=== PATIENT | male | born 1945 | race Caucasian/White ===

== ENCOUNTER 2018-09-14 16:53 | Inpatient (IN) | payer MEDICARE ==
[~2018-09-14] VITALS: Ht 167.6 cm; Wt 88.6 kg
[2018-09-14] MEDS ORDERED: nitroGLYCERIN 1gm ointment UD TP ONE (17:05)
[2018-09-14] MEDS ORDERED: aspirin 81mg tab.chew PO ONE (17:05)
[2018-09-14] MEDS ORDERED: nitroGLYCERIN 0.4mg SUBLingual tab SL PRN ×2 (17:05→18:00)
[2018-09-14 17:19] LABS: BASOPHILS % (AUTO) 0.3 % (0-1); EOSINOPHILS % (AUTO) 0.4 % (0-6); HEMATOCRIT 49.5 % (42.0-52.0); LYMPHOCYTES # (AUTO) 1.4 X10'3 (1.1-4.8); LYMPHOCYTES % (AUTO) 18.3 % (21-51); MEAN CORPUSCULAR HEMOGLOBIN 31.4 PG (27.0-31.0); MEAN CORPUSCULAR HGB CONC 34.3 g/dL (33.0-36.5); MEAN CORPUSCULAR VOLUME 91.3 FL (78-98); MEAN PLATELET VOLUME 8.6 FL (7.4-10.4); MONOCYTES # (AUTO) 0.6 X10'3 (0-0.9); MONOCYTES % (AUTO) 7.8 % (2-12); NEUTROPHILS # (AUTO) 5.7 X10'3 (1.8-7.7); NEUTROPHILS % (AUTO) 73.2 % (42-75); PLATELET COUNT 184 X10'3 (140-440); RED BLOOD COUNT 5.42 X10'6 (4.70-6.10); RED CELL DISTRIBUTION WIDTH 13.7 % (11.5-14.5); WHITE BLOOD COUNT 7.7 X10'3 (4.5-11.0)
--- NOTE | 2018-09-14 17:21 | NUR ---
PT. IS TAKING MD DARYL AWARE AND INFORMED TO D/C ALL NITROGLYCERIN MEDICATIONS.
[2018-09-14 17:30] LABS: ALANINE AMINOTRANSFERASE 58 U/L (12-78); ALBUMIN 4.3 G/DL (3.4-5.0); ALBUMIN/GLOBULIN RATIO 1.4 (1.1-1.5); ALKALINE PHOSPHATASE 58 IU/L (46-116); ANION GAP 9 (8-16); ASPARTATE AMINO TRANSFERASE 30 U/L (10-37); BILIRUBIN,TOTAL 0.8 MG/DL (0.1-1.0); BLOOD UREA NITROGEN 19 MG/DL (7-18); BUN/CREATININE RATIO 20.2 (5.4-32.0); CALCIUM 9.4 MG/DL (8.5-10.1); CHLORIDE 101 MMOL/L (99-107); CREATININE 0.94 MG/DL (0.60-1.10); GLUCOSE 157 MG/DL (70-104); SODIUM 138 MMOL/L (135-145); TOTAL CARBON DIOXIDE 27.6 MMOL/L (24-32); TOTAL PROTEIN 7.3 G/DL (6.4-8.2); eGFR 79 ML/MIN
[2018-09-14] MEDS ORDERED: sucralfate 1gm/10ml UD suspension PO STA (17:46)
[2018-09-14] MEDS ORDERED: LIDOcaine Viscous 15ml cup PO ONE (17:50)
[2018-09-14] MEDS ORDERED: mag hydrox/Alum hydrox/simeth 30ml oral suspension PO ONE (17:50)
[2018-09-14] MEDS ORDERED: oxymetazoline 15 ML nasal spray NS ONE (17:55)
[2018-09-14] MEDS ORDERED: metoprolol tartrate 1mg/ml inj IV PRN (18:00)
[2018-09-14] MEDS ORDERED: acetaminophen 325mg tablet PO PRN ×2 (18:00)
[2018-09-14] MEDS ORDERED: aminophylline 250mg/10ml inj. IV PRN (18:00)
[2018-09-14] MEDS ORDERED: magnesium hydroxide 30ml (MOM) UD suspension PO PRN (18:00)
[2018-09-14] MEDS ORDERED: HYDROcodone/acetaminophen 10/325mg tab PO PRN (18:00)
[2018-09-14] MEDS ORDERED: HYDROcodone/acetaminophen 5mg/325mg tablet PO PRN (18:00)
[2018-09-14] MEDS ORDERED: morphine 2 MG/ML inj. syringe IV PRN ×2 (18:00)
[2018-09-14] MEDS ORDERED: magnesium 4gm in 100ml NS 100 ML IV PRN (18:00)
[2018-09-14] MEDS ORDERED: potassium Cl 20 mEq SR tablet PO PRN ×2 (18:00)
[2018-09-14] MEDS ORDERED: magnesium 2GM in 50ml NS 50 ML IV PRN (18:00)
[2018-09-14] MEDS ORDERED: regadenoson 0.4mg/5ml syringe IV ONE (18:00)
[2018-09-14] MEDS ORDERED: magnesium Cl slow-release 64mg tablet PO PRN (18:00)
[2018-09-14] MEDS ORDERED: potassium CL 10mEq/100ml bag 100 ML IV PRN ×2 (18:00)
[2018-09-14] MEDS ORDERED: ondansetron/PF 4mg/2ml inj IV PRN (18:00)
[2018-09-14] MEDS ORDERED: HYDR50CA5 PO (18:01)
[2018-09-14] MEDS ORDERED: FISH12002 PO (18:01)
[2018-09-14] MEDS ORDERED: LISI-600 PO (18:01)
[2018-09-14] MEDS ORDERED: BUPR150T8 PO (18:01)
[2018-09-14] MEDS ORDERED: ATOR80TA PO (18:01)
[2018-09-14] MEDS ORDERED: CYAN100070 PO (18:01)
[2018-09-14] MEDS ORDERED: ZOLP5TAB8 PO (18:02)
[2018-09-14] MEDS ORDERED: CHOL100046 PO (18:02)
[2018-09-14] MEDS ORDERED: ASPI-1265 PO (18:02)
[2018-09-14] MEDS ORDERED: TEST200V10 IM (18:02)
[2018-09-14] MEDS: normal saline 1000ml 1,000 ML IV SCH (18:18)
[2018-09-14 18:28] LABS: HEMOGLOBIN A1C 5.8 % (4.5-6.2)
[2018-09-14 18:48] LABS: H PYLORI ANTIBODY NEGATIVE (Neg)
--- NOTE | 2018-09-14 19:12 | NUR ---
Patient in room . I have received report from AGNES Martinez in ED and had the opportunity to ask questions and will assume patient care when pt arrives to unit.
[2018-09-14 19:40] VITALS: BP 144/80
[2018-09-14] MEDS ORDERED: hydrOXYzine 25 MG tablet PO PRN (20:25)
[2018-09-14] MEDS ORDERED: zolpidem 5mg tablet PO PRN (20:25)
[2018-09-14] MEDS: metoprolol tartrate 25mg tablet PO SCH (20:44)
[2018-09-14] MEDS: mag hydrox/Alum hydrox/simeth 30ml oral suspension PO PRN (21:04)
--- NOTE | 2018-09-14 23:18 | NUR ---
Per patient, he takes both hydralazine 50mg and ambien 5mg at bedtime to help with insomnia. Orders received from Dr. Barraza and per Dr. Barraza, it is ok to give both together.
[2018-09-15] VITALS (10 sets, daily range): BP systolic 116–148; BP diastolic 60–81
[2018-09-15] MEDS: normal saline 1000ml 1,000 ML IV SCH (04:10)
[2018-09-15 06:02] LABS: HEMATOCRIT 50.1 % (42.0-52.0); HEMOGLOBIN 16.8 g/dl (14.0-17.9); MEAN CORPUSCULAR HEMOGLOBIN 31.1 PG (27.0-31.0); MEAN CORPUSCULAR HGB CONC 33.5 g/dL (33.0-36.5); MEAN CORPUSCULAR VOLUME 92.7 FL (78-98); MEAN PLATELET VOLUME 9.1 FL (7.4-10.4); PLATELET COUNT 162 X10'3 (140-440); RED BLOOD COUNT 5.41 X10'6 (4.70-6.10); RED CELL DISTRIBUTION WIDTH 13.6 % (11.5-14.5); WHITE BLOOD COUNT 7.7 X10'3 (4.5-11.0)
--- NOTE | 2018-09-15 06:09 | NUR ---
Problems reprioritized. Patient report given, questions answered & plan of care reviewed with AGNES Esqueda.
[2018-09-15] MEDS: mag hydrox/Alum hydrox/simeth 30ml oral suspension PO PRN (06:11)
[2018-09-15 06:24] LABS: ALBUMIN 3.8 G/DL (3.4-5.0); ANION GAP 7 (8-16); BLOOD UREA NITROGEN 17 MG/DL (7-18); BUN/CREATININE RATIO 20.5 (5.4-32.0); CALCIUM 8.8 MG/DL (8.5-10.1); CHLORIDE 105 MMOL/L (99-107); CREATININE 0.83 MG/DL (0.60-1.10); GLUCOSE 101 MG/DL (70-104); LIPASE 158 U/L (73-393); MAGNESIUM 2.3 MG/DL (1.5-2.4); PHOSPHORUS 2.7 MG/DL (2.3-4.5); POTASSIUM 4.2 MMOL/L (3.5-5.1); SODIUM 139 MMOL/L (135-145); TOTAL CARBON DIOXIDE 26.6 MMOL/L (24-32); eGFR > 90 ML/MIN
--- NOTE | 2018-09-15 06:27 | NUR ---
Patient in room [facility]. I have received report from Haven ALARCON and had the opportunity to ask questions and assume patient care.
[2018-09-15] MEDS: metoprolol tartrate 25mg tablet PO SCH (07:42)
[2018-09-15] MEDS ORDERED: enoxaparin 40mg/0.4ml syringe SUBCUT SCH (08:00)
[2018-09-15] MEDS ORDERED: K and/or MAG REPLACEMENT MC SCH (08:00)
[2018-09-15] MEDS ORDERED: aspirin 81mg tablet.DR PO SCH (08:00)
[2018-09-15] MEDS ORDERED: regadenoson 0.4mg/5ml syringe IV PRN (09:30)
--- NOTE | 2018-09-15 13:41 | NUR ---
patient went for Stress test results seen by Dr Gant. Is for DC. All Dc instructions given to spouse and patient. No new meds. patient appears to be in stable condition for DC. Dc home via private car home 1230hrs.
== END 2018-09-15 12:54 | disposition home or self-care (01) | DRG 880 ==
LOC: ER 16:53 → SUR 3N 19:22
PROVIDERS: ADMIT Family Medicine; ATTEND Family Medicine
PROC: 4A02XM4 Measurement of Cardiac Total Activity, External Approach (ICD-10-PCS; principal; 2018-09-15)
PROC: 3E033HZ Introduction of Radioactive Substance into Peripheral Vein, Percutaneous Approach (ICD-10-PCS; 2018-09-15)
DX: F41.9 Anxiety disorder, unspecified (principal); R07.89 Other chest pain; E78.00 Pure hypercholesterolemia, unspecified; E78.5 Hyperlipidemia, unspecified; F32.9 Major depressive disorder, single episode, unspecified; F41.1 Generalized anxiety disorder; I10 Essential (primary) hypertension; I20.9 Angina pectoris, unspecified; Z96.1 Presence of intraocular lens; G47.00 Insomnia, unspecified; K21.9 Gastro-esophageal reflux disease without esophagitis; Z96.653 Presence of artificial knee joint, bilateral; Z98.42 Cataract extraction status, left eye; Z98.41 Cataract extraction status, right eye; Z79.82 Long term (current) use of aspirin; Z79.899 Other long term (current) drug therapy
CPT/HCPCS: 36415; 71045; 78452; 80048; 80053; 83036; 83690; 83735; 83880; 84100; 84484; 85025; 85027; 86677; 87081; 93005; 93017; 96360; 99285; A9500; G0378; J0280; J1650; J2785; J7030; Z7610

== ENCOUNTER 2022-04-11 12:35 | Day surgery (SDC) | payer BC ==
[~2022-04-11] VITALS: Ht 167.6 cm; Wt 83.5 kg
[2022-04-11] VITALS (10 sets, daily range): BP systolic 111–169; BP diastolic 60–83
[~2022-04-11 12:35] MED LIST: ASPI-1265 PO; ATOR80TA PO; BUPR150T8 PO; CHOL100046 PO; CYAN100070 PO; FISH12002 PO; HYDR50CA5 PO; LISI20TA28 PO; TEST200V33 IM; ZOLP5TAB8 PO
[2022-04-11] MEDS ORDERED: TEMA15CA (13:04)
[2022-04-11] MEDS ORDERED: METO25TA6 PO (13:04)
[2022-04-11] MEDS ORDERED: APIX5TAB3 PO (13:04)
[2022-04-11] MEDS ORDERED: AMIO200T61 PO (13:04)
[2022-04-11] MEDS ORDERED: FLO0.4C (13:04)
[2022-04-11] MEDS ORDERED: LORA-512 PO (13:06)
[2022-04-11] MEDS ORDERED: OMEG-5 PO (13:06)
[2022-04-11] MEDS ORDERED: BUDE0.5A3 NEB (13:06)
[2022-04-11] MEDS ORDERED: ASPI-1071 PO (13:08)
[2022-04-11] MEDS ORDERED: ACET-890 PO (13:08)
[2022-04-11] MEDS ORDERED: normal saline 1000ml 1,000 ML IV SCH (13:10)
[2022-04-11] MEDS ORDERED: fentaNYL/PF 50MCG/1 ML 2ML syringe IV ONE (13:10)
[2022-04-11] MEDS ORDERED: MIDAZolam 1mg/ml 10ml vial IV ONE (13:10)
[2022-04-11 13:24] LABS: BASOPHILS % (AUTO) 0.7 % (0-1); EOSINOPHILS # (AUTO) 0.1 X10'3 (0-0.9); EOSINOPHILS % (AUTO) 1.1 % (0-6); HEMATOCRIT 42.1 % (42.0-52.0); HEMOGLOBIN 13.6 g/dl (14.0-17.9); LYMPHOCYTES # (AUTO) 1.3 X10'3 (1.1-4.8); LYMPHOCYTES % (AUTO) 27.1 % (21-51); MEAN CORPUSCULAR HEMOGLOBIN 27.8 PG (27.0-31.0); MEAN CORPUSCULAR HGB CONC 32.2 g/dL (33.0-36.5); MEAN CORPUSCULAR VOLUME 86.5 FL (78-98); MEAN PLATELET VOLUME 8.7 FL (7.4-10.4); MONOCYTES # (AUTO) 0.3 X10'3 (0-0.9); MONOCYTES % (AUTO) 6.8 % (2-12); NEUTROPHILS # (AUTO) 3.1 X10'3 (1.8-7.7); NEUTROPHILS % (AUTO) 64.3 % (42-75); PLATELET COUNT 154 X10'3 (140-440); RED BLOOD COUNT 4.87 X10'6 (4.70-6.10); RED CELL DISTRIBUTION WIDTH 16.8 % (11.5-14.5); WHITE BLOOD COUNT 4.8 X10'3 (4.5-11.0)
[2022-04-11 13:43] LABS: ANION GAP 5 (8-16); CALCIUM 9.2 MG/DL (8.5-10.1); CHLORIDE 106 MMOL/L (99-107); CREATININE 0.78 MG/DL (0.60-1.10); GLUCOSE 106 MG/DL (70-104); SODIUM 139 MMOL/L (135-145); TOTAL CARBON DIOXIDE 27.6 MMOL/L (24-32); eGFR > 90 ML/MIN
[2022-04-11 13:47] LABS: BLOOD UREA NITROGEN 17 MG/DL (7-18); BUN/CREATININE RATIO 21.8 (5.4-32.0)
== END 2022-04-11 15:50 | disposition home or self-care (01) ==
LOC: SSTAY O 12:35
PROVIDERS: ATTEND Student in an Organized Health Care Education/Training Program
DX: I48.91 Unspecified atrial fibrillation (principal); I48.3 Typical atrial flutter; I10 Essential (primary) hypertension; I25.10 Atherosclerotic heart disease of native coronary artery without angina pectoris; I35.0 Nonrheumatic aortic (valve) stenosis; M19.90 Unspecified osteoarthritis, unspecified site; Z95.1 Presence of aortocoronary bypass graft; Z79.899 Other long term (current) drug therapy; Z79.82 Long term (current) use of aspirin
CPT/HCPCS: 36415; 80048; 85025; 85610; 92960; 93005; J2250; J3010; J7030; A4620

== ENCOUNTER 2023-07-02 10:44 | Emergency (ER) | payer BC ==
[~2023-07-02] VITALS: Ht 167.6 cm; Wt 83.0 kg
[~2023-07-02 10:44] MED LIST changes: +ACET-890 PO; +AMI200T PO; +APIX5TAB3 PO; +ASPI-1071 PO; +BUDE0.5A3 NEB; -BUPR150T8 PO; -CYAN100070 PO; -FISH12002 PO; +FLO0.4C; -HYDR50CA5 PO; -LISI20TA28 PO; +LORA-512 PO; +METO25TA6 PO; +OMEG-5 PO; +TEMA15CA; -TEST200V33 IM; -ZOLP5TAB8 PO
[2023-07-02 11:02] VITALS: TEMP 98.5
[2023-07-02] MEDS: ipratropium/albuterol 3ml nebule NEB STA (13:21)
[2023-07-02] MEDS: dexamethasone sod phosphate 10mg/ml inj IM STA (13:21)
[2023-07-02 13:45] VITALS: PULSE 67; PULSE 70; RESP 17; RESP 18; O2SAT 97; O2SAT 98
[2023-07-02 13:59] VITALS: BP 147/78; PULSE 78; RESP 16; O2SAT 93
[2023-07-02] MEDS ORDERED: AZIT-31 PO (14:00)
[2023-07-02] MEDS ORDERED: PRED10TA23 PO (14:00)
== END 2023-07-02 14:22 | disposition home or self-care (01) ==
LOC: ER 10:45
DX: J20.9 Acute bronchitis, unspecified (principal); E78.00 Pure hypercholesterolemia, unspecified; I10 Essential (primary) hypertension
CPT/HCPCS: 71045; 94640; 96372; 99283; J1100; 94760